=== PATIENT | female | born 1975 | race Caucasian/White ===

== ENCOUNTER → 2019-10-18 | Outpatient (CLI) | payer OTHER ==
--- NOTE | 2019-10-18 20:19 | MR ---
MRI CERVICAL SPINE: CLINICAL HISTORY: Cervical radiculopathy per order. History of prior headache and neck surgery 12 yea rs ago presents with neck pain and diminished neck movement causing pain or weakness into both arms a nd fingers. TECHNIQUE: Multiplanar, multisequence imaging of the cervical spine is performed without IV contrast. COMPARISON: None. FINDINGS: Coronal images show slight levoconvex scoliotic curvature centered in the upper thoracic sp ine. Sagittal images of the cervical spine show the craniocervical junction to appear within normal l imits. The cervical and upper thoracic spinal cord is normal in caliber and signal. Artifact from bhakta rgical change presumed anterior fusion hardware and metallic disc material extends from the C4-C5 dis c space through the inferior C7 vertebra. Vertebral body heights and disc space heights above and bel ow these levels are satisfactory. The bone marrow signal intensity is within normal limits. Axial images show the C2-C3 level to appear within normal limits. Axial images at the C3-C4 level shows some uncovertebral facet degenerative changes bilaterally causi ng mild bilateral neural foraminal narrowing. Axial images at the C4-C5 level shows some artifact from surgical change, there is mild right-sided n eural foraminal narrowing due to uncovertebral facet degenerative change. Axial images at C5-C6 and C6-C7 levels are degraded by blooming artifact. Axial images at C7-T1 level shows some artifact degradation otherwise are felt within normal limits IMPRESSION: Post surgical change C5-C7 level with stable alignment. Some uncovertebral facet degenera tive changes in the upper to mid cervical spine otherwise fairly unremarkable study.
== END | disposition home or self-care (01) ==
LOC: RADMRIMAIN 19:13
PROVIDERS: ATTEND Anesthesiology Pain Medicine
DX: M47.22 Other spondylosis with radiculopathy, cervical region (principal); Z98.890 Other specified postprocedural states
CPT/HCPCS: 72141